=== PATIENT | female | born 1990 | race African-American/Black ===

== ENCOUNTER 2016-10-13 13:11 | Emergency (ER) | payer OTHER ==
[2016-10-13 13:38] VITALS: BP 130/69; PULSE 71; TEMP 99.1; BMI 34.4
[2016-10-13] MEDS ORDERED: KETOROLAC TROMETHAMINE 60 MG/2 ML VIAL IM ONE (14:50)
[2016-10-13] MEDS ORDERED: CYCLOBENZAPRINE HCL 10 MG TABLET (FP) PO ONE (14:51)
[2016-10-13] MEDS ORDERED: KETOROLAC TROMETHAMINE 60 MG/2 ML VIAL ONE (14:53)
[2016-10-13] MEDS ORDERED: CYCLOBENZAPRINE HCL 10 MG TABLET (FP) ONE (14:53)
--- NOTE | 2016-10-13 14:55 | PDOC ---
History of Present Illness - General Chief Complaint: Back Pain Stated Complaint: LOWER BACK PAIN Time Seen by Provider: 10/13/16 14:21 History Source: Patient Exam Limitations: No Limitations - History of Present Illness Initial Comments: 10/13/16 14:55 CHIEF COMPLAINT: Lower back pain HISTORY OF PRESENT ILLNESS: Patient is a 25-year-old female with no significant medical history here today complaining of lower back pain without radiation of pain down the legs 5 days. Patient denies any injury to her back or any heavy lifting. Patient denies any urinary symptoms. Patient denies any weakness of legs or any saddle anesthesia or any incontinency. Occurred: reports: other (5 days) Severity: reports: moderate Pain Location: reports: back (lower back salma n) Method of Injury: Yes: unknown Modifying Factors: improves with: other (standing or sitting ) Loss of Consciousness: no loss of consciousness Associated Symptoms (Fall): denies symptoms Past History - Past Medical History Allergies/Adverse Reactions: Allergies Allergy/AdvReac Type Severity Reaction Status Date / Time No Known Allergies Allergy Verified 10/13/16 13:37 Home Medications: Ambulatory Orders Cyclobenzaprine HCl [Flexeril -] 10 mg PO Q8H PRN #21 tablet MDD 3 10/13/16 Naproxen [Naprosyn -] 500 mg PO BID PRN #14 tablet MDD 2 10/13/16 Anemia: No HTN: No Other medical history: PT DENIES MECICAL HX - Surgical History Cholecystectomy: Yes - Immunization History Immunization Up to Date: Yes - Psycho/Social/Smoking Cessation Hx Anxiety: No Suicidal Ideation: No Smoking Status: No Smoking History: Never smoked Number of Cigarettes Smoked Daily: 0 Hx Alcohol Use: No (OCCASIONALLY) Drug/Substance Use Hx: No Substance Use Type: None Review of Systems - Review of Systems Able to Perform ROS?: Yes Constitutional: No: Symptoms Reported HEENTM: No: Symptoms Reported Respiratory: No: Symptoms reported Cardiac (ROS): No: Symptoms Reported ABD/GI: No: Symptoms Reported : No: Symptoms Reported Musculoskeletal: Yes: Back Pain (lower back pain without radiation down legs), Muscle Pain (lower back) Integumentary: No: Symptoms Reported Neurological: No: Symptoms reported *Physical Exam - Vital Signs Last Vital Signs Temp Pulse Resp BP Pulse Ox 99.1 F 71 16 130/69 98 10/13/16 13:35 10/13/16 13:35 10/13/16 13:35 10/13/16 13:35 10/13/16 13:35 - Physical Exam General Appearance: Yes: Appropriately Dressed Respiratory/Chest: positive: Lungs Clear, Normal Breath Sounds. negative: Chest Tender, Respiratory Distress Cardiovascular: positive: Regular Rhythm, Regular Rate, S1, S2 Musculoskeletal: positive: Normal Inspection, Decreased Range of Motion (at the waist ), Muscle Spasm (left paraspinal muscle lumbar). negative: CVA Tenderness , CVA Tenderness (R), CVA Tenderness (L), Vertebral Tenderness Integumentary: positive: Normal Color Neurologic: positive: Alert, Normal Response, Motor Strength 5/5 (legs ), Respond to painful stimul (b/l legs ), Responsive, Other (negative SLR b/l ). negative: Sensory Deficit Deep Tendon Reflexes: Ankle (L): 4+, Ankle (R): 4+, Knee (L): 4+, Knee (R): 4+ Medical Decision Making - Medical Decision Making 10/13/16 15:06 Patient is a 25-year-old female with no significant medical history here today complaining of lower back pain without radiation of pain down the legs 5 days. Patient denies any injury to her back or any heavy lifting. Patient denies any urinary symptoms. Patient denies any weakness of legs or any saddle anesthesia or any incontinency. Lower back pain with muscle spasm paraspinal lumbar muscles on left 10/13/16 15:07 PLAN: toradol 60 mg IM flexeril 10 mg po now xray lumbar sacral spine lumbar coccyx appears anteriorly position relative to the remainder of the sacrum and coccyx and recommend clinical correlation for point tenderness. This may be developmental however subluxation/displacement cannot be excluded. Patient denies any coccyx pain. Patient follow-up with orthopedist and discharged patient with Flexeril 10 mg every 8 hours when necessary muscle spasm Naprosyn 500 mg every 12 hours when necessary pain 10/13/16 15:08 10/13/16 15:30 10/13/16 16:13 *DC/Admit/Observation/Transfer Diagnosis at time of Disposition: Low back pain Qualifiers: Chronicity: acute Back pain laterality: bilateral Sciatica presence: without sciatica Qualified Code(s): M54.5 - Low back pain - Discharge Dispostion Disposition: HOME Condition at time of disposition: Stable - Referrals Referrals: Bam Roberts [Primary Care Provider] - Mingo Amador MD [Staff Physician] -
== END 2016-10-13 16:34 | disposition home or self-care (01) ==
LOC: JERFT 13:11
PROC: 3E0233Z Introduction of Anti-inflammatory into Muscle, Percutaneous Approach (ICD-10-PCS; principal; 2016-10-13)
DX: M54.5 Low back pain (principal)
CPT/HCPCS: 72100-TC; 96372; 99281-25

== ENCOUNTER 2018-04-25 16:24 | Emergency (ER) | payer OTHER ==
[2018-04-25 16:34] VITALS: BP 126/60; PULSE 103; TEMP 98.1; BMI 33.3
--- NOTE | 2018-04-25 19:01 | PDOC ---
History of Present Illness - General Chief Complaint: Lightheaded Stated Complaint: DIZZYNESS, LEFT LEG PAIN Time Seen by Provider: 04/25/18 19:01 History Source: Patient Exam Limitations: No Limitations - History of Present Illness Initial Comments: 04/25/18 20:01 27 year old female with no past medical history presents to the ER With a chief complaint of on and off left leg numbness and tingling. She States she also has been having intermittent dizziness especially when she looks far away. This doesn't happen all the time and both complaints are not related. She states the dizziness sometimes gets worse when stares into a far distance. She denies nausea vomiting fever chills chest pain or shortness of breath. She denies headaches or blurry vision. She states that none of her symptoms are situational or positional. The patient reports for several months that she has intermittent approx several minutes to 30 minutes of intermittent tingling without pain in LLE. SHe came to the ER because her PMD and she had some time to come to the ER to see a doctor. Past History - Past Medical History Allergies/Adverse Reactions: Allergies Allergy/AdvReac Type Severity Reaction Status Date / Time No Known Allergies Allergy Verified 04/25/18 16:30 Home Medications: Ambulatory Orders Cyclobenzaprine HCl [Flexeril -] 10 mg PO Q8H PRN #21 tablet MDD 3 10/13/16 Naproxen [Naprosyn -] 500 mg PO BID PRN #14 tablet MDD 2 10/13/16 Anemia: No COPD: No HTN: No - Surgical History Cholecystectomy: Yes - Immunization History Immunization Up to Date: Yes - Suicide/Smoking/Psychosocial Hx Smoking Status: No Smoking History: Never smoked Number of Cigarettes Smoked Daily: 0 Hx Alcohol Use: No Drug/Substance Use Hx: No Substance Use Type: None Review of Systems - Review of Systems Able to Perform ROS?: Yes Is the patient limited Spanish proficient: No Constitutional: No: Symptoms Reported, See HPI, Chills, Diaphoresis, Fever, Loss of Appetite, Malaise, Night Sweats, Weakness, Weight Stable, Unintentional Wgt. Loss, Unexplained wgt Loss, Other HEENTM: No: Symptoms Reported, See HPI, Eye Pain, Blurred Vision, Tearing, Recent change in vision, Double Vision, Cataracts, Ear Pain, Ocular Prothesis, Ear Discharge, Nose Pain, Nose Congestion, Tinnitus, Nose Bleeding, Hearing Loss , Throat Pain, Throat Swelling, Mouth Pain, Dental Problems, Difficulty Swallowing, Mouth Swelling, Other Respiratory: No: Symptoms reported, See HPI, Cough, Orthopnea, Shortness of Breath, SOB with Exertion, SOB at Rest, Stridor, Wheezing, Productive cough, Hemoptysis, Other Cardiac (ROS): Yes: Chest Pain (occasional ). No: Edema, Irregular Heart Rate, Palpitations, Syncope, Chest Tightness ABD/GI: No: Symptoms Reported, See HPI, Abdominal Distended, Abd. Pain w/ defecation, Blood Streaked Bowels, Constipated, Diarrhea, Difficulty Swallowing , Nausea, Poor Appetite, Poor Fluid Intake, Rectal Bleeding, Vomiting, Indigestion, Abdominal cramping, Tarry Stools, Other : No: Symptoms Reported, See HPI, Burning, Dysuria, Discharge, Frequency, Flank Pain, Hematuria, Incontinence, Pain, Urgency, Testicular Mass, Testicular Swelling, Lesions, Testicular Pain, Other Musculoskeletal: Yes: Back Pain (occasional) Integumentary: No: Symptoms Reported, See HPI, Bruising, Change in Color, Change in Hair/Nails, Dryness, Erythema, Flushing, Lesions, Lumps, Pallor, Pruritus, Rash, Sweating, Other Neurological: Yes: Numbness (LLE), Tingling (LLE), Dizziness Psychiatric: No: Anxiety, Depression, Frequent Crying, Stressors, Sleep Pattern Change, Emotional Problems, Mood Swings, Change in Appetite, Other Endocrine: No: Symptoms Reported, See HPI, Excessive Sweating, Flushing, Intolerance to Cold, Intolerance to Heat, Increased Hunger, Increased Thirst, Increased Urine, Unexplained Weight Gain, Unexplained Weight Loss, Change in Weight, Other Hematologic/Lymphatic: No: Symptoms Reported, See HPI, Anemia, Blood Clots, Easy Bleeding, Easy Bruising, Bleeding Diathesis, Lymph Node Abnormalities, Swollen Glands, Other *Physical Exam - Vital Signs Last Vital Signs Temp Pulse Resp BP Pulse Ox 98.1 F 103 H 18 126/60 99 04/25/18 16:30 04/25/18 16:30 04/25/18 16:30 04/25/18 16:30 04/25/18 16:30 - Physical Exam General Appearance: Yes: Nourished, Appropriately Dressed, Obese. No: Apparent Distress HEENT: positive: EOMI, BEN, Normal ENT Inspection, Normal Voice, Symmetrical, Other (no nystagmus. ) Neck: positive: Trachea midline, Supple Respiratory/Chest: positive: Lungs Clear, Normal Breath Sounds. negative: Respiratory Distress, Wheezing Cardiovascular: positive: Regular Rhythm, Regular Rate, S1, S2. negative: Edema , Murmur Gastrointestinal/Abdominal: positive: Soft. 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 no pain illicited when she bends over at the hip without bending her knees) Heart Score/ECG Review - ECG Impressions Comment:: 04/25/18 19:54 NSR @ 91BPM flipped T waves in V1 V2 V3. normal axis Medical Decision Making - Medical Decision Making 04/25/18 19:55 27F with no PMH presents with a chief complaint of dizziness and left leg numbness and tingling for the past 8 months to a year. Given how chronic her symptoms are will refer her to PMD at the hospital resident clinic. Appointment made with Dr. Pollack for this coming Thursday 930am as patient requested female doctor. Also referred to neurologist. Discussed case with both Dr. Shaw and Bernardo and she will contact neurologist. Dr. Chang's office to reach out to patient tomorrow. EKG done which shows sinus rhythm with T wave inversion in V1-V3 Will discharge patient *DC/Admit/Observation/Transfer Diagnosis at time of Disposition: Dizziness - Discharge Dispostion Disposition: HOME Condition at time of disposition: Stable Decision to Admit order: No - Referrals Referrals: [facility] [place] [facility] [place] [Provider Group] Paul Pollack MD [Staff Physician] - 04/27/18 9:30 am Stevan Shaw DO [Staff Physician] - Call tomorrow Carlos Chang MD [Staff Physician] - Call tomorrow (doctor to call you) - Patient Instructions Printed Discharge Instructions: DI for Dizziness-Nonvertigo Additional Instructions: if your symptoms worsen or you develop nausea vomiting fever chills chest pain go to the nearest emergency room or call your primary care doctor. Follow up with Dr. Pollack this thursday at 930am. - Post Discharge Activity
--- NOTE | 2018-04-25 19:35 | PDOC ---
Attending Attestation - Resident Resident Name: Yonas Garcia - ED Attending Attestation I have performed the following: I have examined & evaluated the patient, The case was reviewed & discussed with the resident, I agree w/resident's findings & plan, Exceptions are as noted - Medical Decision Making 04/25/18 19:30 A portion of this note was written by my scribe, under my supervision. Vital Signs Temp Pulse Resp BP Pulse Ox 98.1 F 103 H 18 126/60 99 04/25/18 16:30 04/25/18 16:30 04/25/18 16:30 04/25/18 16:30 04/25/18 16:30 27 year old female with no past medical history presents with several months of intermittent "tingling" in the left lower extremity. The patient reports for several months that she has intermittent approx several minutes to 30 minutes of intermittent tingling without pain in LLE. States occurs in the anterior portion of the left leg. Denies lower back pain or weakness, or diplopia or double vision or numbness. The patient states she has no other symptoms. States that she did not follow up with a physician as her primary care physician had recently . She had an opportunity to come to see a physician so came to the ER. The patient states that she is worried about multiple sclerosis. Given the chronicity of the complaints, I advised that the patient can pursue an outpatient neurological workup (i.e. central vs. peripheral). Dr. Garcia will call neuro construction equipment mechanic (Dr. Chang) to discuss case and set up an outpatient appointment. The patient will follow up with Dr. Yonas Garcia as an outpatient in the resident clinic and establish a PMD with him. Pt is satisfied with the plan and agrees to follow up as an outpatient. <Lukasz Shipley - Last Filed: 04/25/18 19:29> - HPI HPI: 04/25/18 20:05 The patient is a 27 year old female, with no significant past medical history, who presents to the emergency department with, several months of intermittent tingling to the left lower extremity. The patient describes her tingling as localized to the front left lower extremity without pain, lasting 30 minutes. She denies any worsening or alleviating factors. She denies any recent vision changes. She denies recent fevers, chills, headache or dizziness. She denies recent nausea, vomit, diarrhea or constipation. She denies recent dysuria, frequency, urgency or hematuria. She denies recent chest pain or shortness of breath. Allergies: NKA Past surgical history: None reported. Primary Care Physician: Dr. Pollack - Physicial Exam PE: 04/25/18 20:06 GENERAL: Awake, alert, and fully oriented, in no acute distress HEAD: No signs of trauma EYES: PERRLA, EOMI, sclera anicteric, conjunctiva clear ENT: Auricles normal inspection, hearing grossly normal, nares patent, oropharynx clear without exudates. Moist mucosa NECK: Normal ROM, supple, no lymphadenopathy, JVD, or masses LUNGS: Breath sounds equal, clear to auscultation bilaterally. No wheezes, and no crackles HEART: Regular rate and rhythm, normal S1 and S2, no murmurs, rubs or gallops ABDOMEN: Soft, nontender, normoactive bowel sounds. No guarding, no rebound. No masses EXTREMITIES: Normal range of motion, no edema. No clubbing or cyanosis. No cords, erythema, or tenderness NEUROLOGICAL: Alert, awake, appropriate. Cranial nerves 2-12 intact. No deficits to light touch and temperature in face, upper extremities and lower extremities. No motor deficits in the in face, upper extremities and lower extremities. No pronator drift. Normoreflexic in the upper and lower extremities. Normal speech. Toes are down-going bilaterally. Gait is normal without ataxia. SKIN: Warm, Dry, normal turgor, no rashes or lesions noted. <Venkata Leon - Last Filed: 04/25/18 20:08> Discharge Disposition <Lukasz Shipley - Last Filed: 04/25/18 19:29> <Venkata Leon - Last Filed: 04/25/18 20:08> - Diagnosis Dizziness - Discharge Dispostion Disposition: HOME Condition at time of disposition: Stable - Referrals Referrals: [facility] [place] [facility] at [place] [Provider Group] Paul Pollack MD [Staff Physician] - 04/27/18 9:30 am Stevan Shaw DO [Staff Physician] - Call tomorrow Carlos Chang MD [Staff Physician] - Call tomorrow (doctor to call you) - Patient Instructions Printed Discharge Instructions: DI for Dizziness-Nonvertigo Additional Instructions: if your symptoms worsen or you develop nausea vomiting fever chills chest pain go to the nearest emergency room or call your primary care doctor. Follow up with Dr. Ranjeet pisano thursday at 930am. Heart Score/ECG Review #1 ECG reviewed & interpreted by me at: 16:50 04/25/18 19:29 NSR 91, no std/charlie, normal axis, normal intervals, T wave fla taVL, TWI V2-V3, QTC 425 msec <Lukasz Shipley - Last Filed: 04/25/18 19:29> Attestations - Attestations 04/25/18 20:07 Documentation prepared by Venkata Leon, acting as medical file clerk for Lukasz Shipley MD. <Venkata Leon - Last Filed: 04/25/18 20:08>
--- NOTE | 2018-04-30 12:08 | EKG ---
Test Reason : Blood Pressure : / mmHG Vent. Rate : 091 BPM Atrial Rate : 091 BPM P-R Int : 144 ms QRS Dur : 072 ms QT Int : 346 ms P-R-T Axes : 054 047 050 degrees QTc Int : 425 ms NORMAL SINUS RHYTHM POSSIBLE LEFT ATRIAL ENLARGEMENT NONSPECIFIC T WAVE ABNORMALITY ABNORMAL ECG NO PREVIOUS ECGS AVAILABLE Confirmed by LAKIA RUBALCAVA MD ([id number]) on 04/30/2018 12:07:40 PM Referred By: Confirmed By:LAKIA RUBALCAVA MD
== END 2018-04-25 19:57 | disposition home or self-care (01) ==
LOC: JER 16:24
DX: R42 Dizziness and giddiness (principal)
CPT/HCPCS: 93005; 93010; 99282-25

== ENCOUNTER 2018-11-05 22:01 | Emergency (ER) | payer OTHER ==
[2018-11-05 22:09] VITALS: BP 126/69; PULSE 71; TEMP 98.3; BMI 34.4
--- NOTE | 2018-11-05 22:46 | PDOC ---
History of Present Illness - General Chief Complaint: Vaginal Sxs Stated Complaint: ABD PAIN Time Seen by Provider: 11/05/18 22:43 History Source: Patient Exam Limitations: No Limitations - History of Present Illness Travel History: No Initial Comments: 11/05/18 22:45 Best Contact: PCP: Dr. Shahnaz Monson Pmhx: depression, Meds:Lexapro, truvada, Isyntress, Pep ( started on Oct 22, 2018) last STD test,on Oct 26, 2018 Pshx: 2013: Laproscopic cholecystectomy Allergies: NKDA FH:0 Social Hx: Cigarettes/ 0 Alcohol/ social Drugs/0 LMP:10/31/2018 27-year-old female presents to the emergency department complaining of vaginal itch/grayish whitish discharge with fishy odor and burning upon urination 5 days without fever, chills, nausea/vomiting, dizziness, chest pain, shortness of breath, back pains, flank pains, abdominal pains. Patient states she's also been using apple cider vinegar vaginal rinse which helps the odor. Patient was tested on October 26 for STD and was negative. Patient is sexually active with one male partner. Past History - Past Medical History Allergies/Adverse Reactions: Allergies Allergy/AdvReac Type Severity Reaction Status Date / Time No Known Allergies Allergy Verified 11/05/18 22:09 Home Medications: Ambulatory Orders Cyclobenzaprine HCl [Flexeril -] 10 mg PO Q8H PRN #21 tablet MDD 3 10/13/16 Naproxen [Naprosyn -] 500 mg PO BID PRN #14 tablet MDD 2 10/13/16 Fluconazole [Diflucan] 150 mg PO ONCE #1 tablet 11/06/18 metroNIDAZOLE 0.75% VAG. GEL [Metrogel 0.75% Vaginal Gel -] 1 applic VG HS #1 tube 11/06/18 Anemia: No COPD: No HTN: No - Surgical History Cholecystectomy: Yes - Immunization History Immunization Up to Date: Yes - Suicide/Smoking/Psychosocial Hx Smoking Status: No Smoking History: Never smoked Have you smoked in the past 12 months: No Number of Cigarettes Smoked Daily: 0 Information on smoking cessation initiated: No Hx Alcohol Use: No Drug/Substance Use Hx: No Substance Use Type: None Abd/GI Specific PMHX - Complaint Specific PMHX GI Ulcer Disease: No Review of Systems - Review of Systems Able to Perform ROS?: Yes Comments:: 11/05/18 22:53 CONSTITUTIONAL: Absent: fever, chills, diaphoresis, generalized weakness, malaise, loss of appetite HEENT: Absent: rhinorrhea, nasal congestion, throat pain, throat swelling, difficulty swallowing, mouth swelling, ear pain, eye pain, visual Changes CARDIOVASCULAR: Absent: chest pain, loss of consciousness, palpitations, irregular heart rate, peripheral edema RESPIRATORY: Absent: cough, shortness of breath, dyspnea with exertion, orthopnea, wheezing, stridor, hemoptysis GASTROINTESTINAL: Absent: abdominal pain, abdominal distension, nausea, vomiting, diarrhea, constipation, melena, hematochezia GENITOURINARY: Absent: dysuria, frequency, urgency, hesitancy, hematuria, flank pain, genital pain MUSCULOSKELETAL: Absent: myalgia, arthralgia, joint swelling SKIN: Absent: rash, itching, pallor Is the patient limited Frisian proficient: No *Physical Exam - Vital Signs Last Vital Signs Temp Pulse Resp BP Pulse Ox 98.3 F 71 17 126/69 98 11/05/18 22:07 11/05/18 22:07 11/05/18 22:07 11/05/18 22:07 11/05/18 22:07 - Physical Exam Comments: 11/05/18 22:53 GENERAL: Well developed, well nourished. Awake and alert. No acute distress. HEENT: Normocephalic, atraumatic. PERRLA, EOMI. No conjunctival pallor. Sclera are non- icteric. Moist mucous membranes. Oropharynx is clear. NECK: Supple. Full ROM. No JVD. Carotid pulses 2+ and symmetric, without bruits. No thyromegaly. No lymphadenopathy. CARDIOVASCULAR: Regular rate and rhythm. No murmurs, rubs, or gallops. Distal pulses are 2+ and symmetric. PULMONARY: No evidence of respiratory distress. Lungs clear to auscultation bilaterally. No wheezing, rales or rhonchi. ABDOMINAL: Soft. Non-tender. Non-distended. No rebound or guarding. No organomegaly. Normoactive bowel sounds. MUSCULOSKELETAL Normal range of motion at all joints. No bony deformities or tenderness. No CVA tenderness. EXTREMITIES: No cyanosis. No clubbing. No edema. No calf tenderness. SKIN: Warm and dry. Normal capillary refill. No rashes. No jaundice. NEUROLOGICAL: Alert, awake, appropriate. Cranial nerves 2-12 intact. No deficits to light touch and temperature in face, upper extremities and lower extremities. No motor deficits in the in face, upper extremities and lower extremities. Normoreflexic in the upper and lower extremities. Normal speech. Toes are down- going bilaterally. Gait is normal without ataxia. PSYCHIATRIC: Cooperative. Good eye contact. Appropriate mood and affect. Pelvic: External genitalia normal without lesions. Vaginal vault white and flowers color discharge Cervix is long and closed. No cervical motion tenderness. Uterus is nontender and normal in size. Adnexa are nontender and without masses. Moderate Sedation - Procedure Monitoring Vital Signs: Procedure Monitoring Vital Signs Temperature 98.3 F 11/05/18 22:07 Pulse Rate 71 11/05/18 22:07 Respiratory Rate 17 11/05/18 22:07 Blood Pressure 126/69 11/05/18 22:07 O2 Sat by Pulse Oximetry (%) 98 11/05/18 22:07 *DC/Admit/Observation/Transfer Diagnosis at time of Disposition: BV (bacterial vaginosis) - Discharge Dispostion Disposition: HOME Condition at time of disposition: Stable Decision to Admit order: No - Prescriptions Prescriptions: Fluconazole [Diflucan] 150 mg PO ONCE #1 tablet metroNIDAZOLE 0.75% VAG. GEL [Metrogel 0.75% Vaginal Gel -] 1 applic VG HS #1 tube - Referrals Referrals: Low Friedman MD [Staff Physician] - - Patient Instructions Printed Discharge Instructions: DI for Bacterial Vaginosis Additional Instructions: Pelvic rest Increase fluids Be sure to follow with your plastic molding operator this week Return back to the ER for severe/persistent or worsening symptoms or any concerns - Post Discharge Activity
--- NOTE | 2018-11-05 22:47 | PDOC ---
*Physical Exam - Vital Signs Last Vital Signs Temp Pulse Resp BP Pulse Ox 98.3 F 71 17 126/69 98 11/05/18 22:07 11/05/18 22:07 11/05/18 22:07 11/05/18 22:07 11/05/18 22:07 Medical Decision Making - Medical Decision Making 11/05/18 22:47 Pt seen by Midlevel Provider under my direct supervision Ancillary studies reviewed I agree with plan as outlined by Midlevel Provider *DC/Admit/Observation/Transfer Diagnosis at time of Disposition: BV (bacterial vaginosis) - Discharge Dispostion Disposition: HOME Condition at time of disposition: Stable - Prescriptions Prescriptions: Fluconazole [Diflucan] 150 mg PO ONCE #1 tablet metroNIDAZOLE 0.75% VAG. GEL [Metrogel 0.75% Vaginal Gel -] 1 applic VG HS #1 tube - Referrals Referrals: Low Friedman MD [Staff Physician] - - Patient Instructions Printed Discharge Instructions: DI for Bacterial Vaginosis Additional Instructions: Pelvic rest Increase fluids Be sure to follow with your incident response consultant this week Return back to the ER for severe/persistent or worsening symptoms or any concerns - Post Discharge Activity
[2018-11-06 00:03] LABS: URINE APPEARANCE CLEAR; URINE BILIRUBIN NEGATIVE (<2.0 mg/dL); URINE COLOR LTYELLOW; URINE GLUCOSE (UA) NEGATIVE (NEGATIVE); URINE KETONE NEGATIVE (NEGATIVE); URINE LEUK ESTERASE NEGATIVE (NEGATIVE); URINE NITRITE NEGATIVE (NEGATIVE); URINE PROTEIN NEGATIVE (NEGATIVE); URINE UROBILINOGEN NEGATIVE mg/dL (0.2-1.0)
--- NOTE | 2018-11-10 11:09 | PDOC ---
Patient Follow-up (Call Back) - Post ED Follow - Up Chief Complaint: Urinary Problem Condition at time of discharge: Stable Disposition at time of original discharge: HOME Reason for Call Back: Complaint/Condition F/U (patient left VM to call back. patient is feeling better all results reviewed with patient,) Signs/Symptoms Improved: Yes
== END 2018-11-06 01:39 | disposition home or self-care (01) ==
LOC: JER 22:01
DX: N76.0 Acute vaginitis (principal); B96.89 Other specified bacterial agents as the cause of diseases classified elsewhere
CPT/HCPCS: 36415; 81003; 84703; 87086; 87491; 87591; 99281-25